=== PATIENT | female | born 1985 | race Caucasian/White ===

== ENCOUNTER 2017-02-25 12:24 | Emergency (ER) | payer BC ==
[~2017-02-25] VITALS: Ht 165.1 cm; Wt 67.0 kg
[2017-02-25 12:27] VITALS: Ht 165.1 cm; Wt 67.0 kg
[2017-02-25 13:05] LABS: ADD SCAN DIFF NO
[2017-02-25 13:11] LABS: BASOPHIL # 0.1 10^3/ul (0.0-0.1); BASOPHILS % 0.6 % (0.0-2.0); EOSINOPHILS # 0.2 10^3/ul (0.0-0.5); EOSINOPHILS % 1.8 % (0.0-7.0); HEMATOCRIT 37.2 % (37.0-47.0); HEMOGLOBIN 12.6 g/dl (12.0-16.0); LYMPHOCYTES # 2.6 10^3/ul (0.8-2.9); MEAN CORPUSCULAR HEMOGLOBIN 29.1 pg (29.0-33.0); MEAN CORPUSCULAR HGB CONC 33.9 g/dl (32.0-37.0); MEAN CORPUSCULAR VOLUME 85.9 fl (82.0-101.0); MEAN PLATELET VOLUME 9.9 fl (7.4-10.4); MONOCYTE # 0.8 10^3/ul (0.3-0.9); MONOCYTES % 7.1 % (0.0-11.0); NEUTROPHIL # 6.9 10^3/ul (1.6-7.5); PLATELET COUNT 311 10^3/UL (140-415); RED BLOOD COUNT 4.33 10^6/ul (4.20-5.40); RED CELL DISTRIBUTION WIDTH 12.5 % (11.5-14.5); WHITE BLOOD COUNT 10.5 10^3/ul (4.8-10.8)
[2017-02-25 13:25] LABS: ADD UMIC YES; UR ASCORBIC ACID NEGATIVE (NEGATIVE); UR BACTERIA FEW /HPF (NONE SEEN); UR BILIRUBIN (Dip) NEGATIVE (NEGATIVE); UR BLOOD (Dip) NEGATIVE (NEGATIVE); UR CLARITY CLEAR (CLEAR); UR COLOR STRAW (YELLOW); UR GLUCOSE (Dip) NEGATIVE (NEGATIVE); UR KETONES (Dip) NEGATIVE (NEGATIVE); UR LEUKOCYTE ESTERASE (Dip) 2+ Leu/ul (NEGATIVE); UR NITRITE (Dip) NEGATIVE (NEGATIVE); UR RBC 1 /HPF (0-5); UR SPECIFIC GRAVITY (Dip) 1.006 (1.003-1.030); UR TOTAL PROTEIN (Dip) NEGATIVE (NEGATIVE); UR UROBILINOGEN (Dip) NEGATIVE (NEGATIVE)
--- NOTE | 2017-02-25 13:25 | RADRPT ---
PROCEDURE: US OB. CLINICAL INDICATION: Vaginal spotting TECHNIQUE: Transabdominal and transvaginal views of the pelvis were obtained. COMPARISON: No prior studies are available for comparison. FINDINGS: There is a single intrauterine gestation with a CRL measuring 0.4 cm and the gestational sac measuri ng 1.6 cm, corresponding to a gestational age of 6 weeks and 1 day. The heart rate is noted at 104 bpm. There is a hypoechoic fluid collection adjacent to the gestational sac, measuring 1.1 x 0.6 cm, con sistent with subchorionic hemorrhage. The right ovary measures 2.9 x 2.2 x 2.3 cm. The left ovary measures a 3.5 x 2.5 x 2.6 cm. There is a 1.1 x 2.0 cm simple cyst in the right adnexa. There is a 2.6 cm corpus luteum cyst in the left ovary. There is no free fluid. RPTAT: AA IMPRESSION: Single live intrauterine with an estimated gestational age of 6 weeks and 1 day, based on ultrasound measurements. Marked bradycardia. Focal area of subchorionic hemorrhage. Close follow-up is recommended. .Kilo Ramsey MD, MD Date Time Electronically viewed and signed by .Kilo Ramsey MD, on 02/25/2017 13:24 .S/
[2017-02-25] MEDS ORDERED: CEPH-443 PO (14:13)
--- NOTE | 2017-02-25 14:17 | ERD ---
ER Documentation Chief Complaint Date/Time DATE: 02/25/17 TIME: 14:14 Chief Complaint VAG BLEED SINCE MORNING , 6 WEEKS PREG , LMP 01/15/17 HPI Patient is a 31-year-old female who is 6 weeks . She is with 5 spontaneous abortions. She is complaining of some brown spotting that she first noticed this morning. She states the bleeding is light and there is no clots. She has lower back pain as well as dysuria and increased urinary frequency. Denies any hematuria. Admits to nausea but no vomiting. Denies any fever. She is taking vitamins but she just found out she is so she has not yet seen an OB doctor. ROS All systems reviewed and are negative except as per history of present illness. Medications Home Meds Active Scripts Cephalexin* (Keflex*) 500 Mg Capsule, 500 MG PO BID for 5 Days, CAP Prov:LATASHA BACH PA-C 02/25/17 Allergies Allergies: Coded Allergies: epinephrine (Verified Allergy, Mild, 02/25/17) PMhx/Soc Medical and Surgical Hx: pt denies Medical Hx, pt denies Surgical Hx History of Surgery: No Anesthesia Reaction: No Hx Neurological Disorder: No Hx Respiratory Disorders: No Hx Cardiac Disorders: No Hx Psychiatric Problems: No Hx Miscellaneous Medical Probl: No Hx Alcohol Use: No Hx Substance Use: No Hx Tobacco Use: No Smoking Status: Never smoker FmHx Family History: No diabetes Physical Exam Vitals Vital Signs Date Time Temp Pulse Resp B/P Pulse Ox O2 Delivery O2 Flow Rate FiO2 02/25/17 12:27 99.6 84 18 124/60 99 Physical Exam General: well developed, well nourished, alert, nontoxic, no distress Head: normocephalic, atraumatic Neck: Supple, nontender, no lymphadenopathy, no midline tenderness Respiratory: Clear to auscaultation bilaterally, speaks in full sentences, no use of accesory muscles or labored breathing, no rales, ronchi, or wheezing Cardiovascular: RRR, No murmurs GI: soft, non tender, non distended, negative murphys sign, negative mcburneys point tenderness, no cva tenderness bilaterally, no rebound or guarding Result Diagram: 02/25/17 1251 Results 24 hrs Laboratory Tests Test 02/25/17 12:51 02/25/17 12:53 White Blood Count 10.510^3/ul Red Blood Count 4.3310^6/ul Hemoglobin 12.6g/dl Hematocrit 37.2% Mean Corpuscular Volume 85.9fl Mean Corpuscular Hemoglobin 29.1pg Mean Corpuscular Hemoglobin Concent 33.9g/dl Red Cell Distribution Width 12.5% Platelet Count 15290^3/UL Mean Platelet Volume 9.9fl Neutrophils % 65.0% Lymphocytes % 25.0% Monocytes % 7.1% Eosinophils % 1.8% Basophils % 0.6% Nucleated Red Blood Cells % 0.0/100WBC Neutrophils # 6.910^3/ul Lymphocytes # 2.610^3/ul Monocytes # 0.810^3/ul Eosinophils # 0.210^3/ul Basophils # 0.110^3/ul Nucleated Red Blood Cells # 0.010^3/ul Beta HCG, Quantitative 65654.0mIU/ml Urine Color STRAW Urine Clarity CLEAR Urine pH 6.0 Urine Specific [place] 1.006 Urine Ketones NEGATIVEmg/dL Urine Nitrite NEGATIVEmg/dL Urine Bilirubin NEGATIVEmg/dL Urine Urobilinogen NEGATIVEmg/dL Urine Leukocyte Esterase 2+Elena/ul Urine Microscopic RBC 1/HPF Urine Microscopic WBC 2/HPF Urine Bacteria FEW/HPF Urine Hemoglobin NEGATIVEmg/dL Urine Glucose NEGATIVEmg/dL Urine Total Protein NEGATIVEmg/dl Procedures/MDM This is a 31-year-old female who is with some mild vaginal bleeding that began today. Her labs are consistent with urinary tract infection. Ultrasound showsSingle live intrauterine with an estimated gestational age of 6 weeks and 1 day, based on ultrasound measurements. Marked bradycardia.Focal area of subchorionic hemorrhage.close follow-up [place] [address]. Patient was given copies of all her labs and ultrasound reports she can follow-up with primary care and I recommended she return in 2 days for a follow-up examination. Recommended this patient follow up with her primary care doctor within 48 hours or return to the emergency room for any worsening of symptoms. However this time I do believe there is suitable for outpatient management. I answered all their questions and they agreed with the plan and were discharged home. Departure Diagnosis: Primary Impression: Threatened Condition: Stable Patient Instructions: Cystitis, Possible Miscarriage (Threatened ) Additional Instructions: Call your primary care doctor TOMORROW for an appointment during the next 1-2 days.See the doctor sooner or return here if your condition worsens before your appointment time. LATASHA BACH PA-C Feb 25, 2017 14:17
[2017-02-25 14:24] VITALS: BP 118/60; PULSE 76; RESP 19; TEMP 98.3
== END 2017-02-25 14:24 | disposition home or self-care (01) ==
LOC: FTE 12:24
DX: O20.0 Threatened abortion (principal)
CPT/HCPCS: 36415; 76801; 76817; 81001; 84702; 85025; 86900; 86901; Z7502

== ENCOUNTER 2018-12-01 22:18 | Emergency (ER) | payer BC ==
[~2018-12-01] VITALS: Ht 170.2 cm; Wt 71.4 kg
[~2018-12-01 22:18] MED LIST: CEPH-443 PO
[2018-12-01 22:33] VITALS: BP 129/73; PULSE 83; RESP 20; Ht 170.2 cm; Wt 71.4 kg
[2018-12-01] MEDS ORDERED: BEN25 PO (23:36)
[2018-12-01] MEDS ORDERED: PRED20TA PO (23:36)
--- NOTE | 2018-12-01 23:39 | ERD ---
ER Documentation Chief Complaint Chief Complaint generalized rash/itch x4 days. worse today. HPI 33-year-old female presents with itchy rash all over her body that she had for 4 days. She feels like it is getting worse. She is tried to put aloe vera cream on it but it has not helped. No fever. No lip or tongue swelling or difficulty breathing. No recent illness. Denies any new foods soaps or irritants she can think of. ROS All systems reviewed and are negative except as per history of present illness. Medications Home Meds Active Scripts Prednisone* (Prednisone*) 20 Mg Tab, 40 MG PO DAILY for 4 Days, TAB Prov:LATASHA BACH PA-C 12/01/18 Diphenhydramine Hcl* (Benadryl*) 25 Mg Cap, 25 MG PO Q6, #30 CAP Prov:LATASHA BACH PA-C 12/01/18 Cephalexin* (Keflex*) 500 Mg Capsule, 500 MG PO BID for 5 Days, CAP Prov:LATASHA BACH PA-C 02/25/17 Allergies Allergies: Coded Allergies: epinephrine (Verified Allergy, Mild, 12/01/18) PMhx/Soc History of Surgery: No Anesthesia Reaction: No Hx Neurological Disorder: No Hx Respiratory Disorders: No Hx Cardiac Disorders: No Hx Psychiatric Problems: No Hx Miscellaneous Medical Probl: No Hx Alcohol Use: No Hx Substance Use: No Hx Tobacco Use: No FmHx Family History: No diabetes Physical Exam Vitals Vital Signs Date Temp Pulse Resp B/P (MAP) Pulse Ox O2 O2 Flow FiO2 Time Delivery Rate 12/01/18 97.9 83 20 129/73 99 22:33 (91) Physical Exam Const: No acute distress Head: Atraumatic Eyes: Normal Conjunctiva ENT: Normal External Ears, Nose and Mouth. Neck: Full range of motion. No meningismus. Resp: Clear to auscultation bilaterally Cardio: Regular rate and rhythm, no murmurs Abd: Soft, non tender, non distended. Normal bowel sounds Skin: Multiple macular papular bumps with excoriation secondary to scratching of bilateral lower and upper extremities, no vesicles or pustules Results 24 hrs Current Medications Medications Dose Sig/Kamlesh Start Time Status Last (Trade) Ordered Route PRN Stop Time Admin Dose Reason Admin Prednisone 60 mg ONCE ONCE 12/02/18 (Prednisone) PO 00:00 12/02/18 00:01 Procedures/MDM Patient presents with rash. No evidence of life-threatening rash. Likely allergic reaction. Prescription for Benadryl and prednisone given. First dose of prednisone given here. Patient counseled regarding my diagnostic impression and care plan. Prior to discharge all questions answered. Pt agrees with treatment plan and understands strict return precautions. Pt is instructed to follow up with primary care provider within 24-48 hours. Precautionary instructions provided including instructions to return to the ER if not improving or for any worsening or changing symptoms or concerns. Departure Diagnosis: Primary Impression: Rash Condition: Stable Patient Instructions: Self-Care for Skin Rashes Additional Instructions: Call your primary care doctor TOMORROW for an appointment during the next 1-2 days.See the doctor sooner or return here if your condition worsens before your appointment time. LATASHA BACH PA-C Dec 01, 2018 23:39
[2018-12-02] MEDS ORDERED: predniSONE 20 MG TAB PO ONE
== END 2018-12-01 23:46 | disposition home or self-care (01) ==
LOC: FTE 22:18
DX: R21 Rash and other nonspecific skin eruption (principal)
CPT/HCPCS: 99283; J7512